=== PATIENT | female | born 1960 | race Caucasian/White ===

== ENCOUNTER 2016-05-31 05:42 | Outpatient (CLI) | payer BC ==
[~2016-05-31] VITALS: Ht 165.1 cm; Wt 85.7 kg
[~2016-05-31 05:42] MED LIST: HYDR-3812 PO
== END 2016-05-31 12:59 ==
LOC: PREOP 05:42
PROVIDERS: ATTEND Otolaryngology Otolaryngology/Facial Plastic Surgery
DX: Z01.818 Encounter for other preprocedural examination (principal); R59.0 Localized enlarged lymph nodes

== ENCOUNTER 2016-06-02 07:26 | Day surgery (SDC) | payer BC ==
[~2016-06-02] VITALS: Ht 165.1 cm; Wt 85.7 kg
[2016-06-02 07:45] VITALS: BP 123/79
[2016-06-02] MEDS: LACTATED RINGERS 1,000 ML IV PRN ×2 (07:45→10:15)
[2016-06-02] MEDS ORDERED: LIDOCAINE/EPI 1%-1:100,000 (XYLOCAINE) 20ML ONE (08:56)
[2016-06-02] MEDS ORDERED: fentaNYL INJECTION 100 MCG/2 ML AMP ONE ×2 (09:05→10:05)
[2016-06-02] MEDS ORDERED: MIDAZOLAM 2 MG/2 ML (VERSED) VIAL ONE (09:05)
[2016-06-02] MEDS ORDERED: SEVOFLURANE (ULTANE) 15 ML INHAL SOLN ONE ×4 (09:06→11:10)
[2016-06-02] MEDS ORDERED: proPOfol 200 MG/20 ML (DIPRIVAN) VIAL IV ONE ×2 (09:06→11:11)
--- NOTE | 2016-06-02 09:25 | Progress Note-Pre Operative ---
Pre-Operative Progress Note H&P Reviewed The H&P was reviewed, patient examined and no changes noted. Date H&P Reviewed: Jun 02, 2016 Time H&P Reviewed: 09:00 Pre-Operative Diagnosis: Left Anterior Neck Mass JAYESH MARQUEZ MD Jun 02, 2016 9:25 am
[2016-06-02] MEDS ORDERED: MUPIROCIN 2% OINT 22 GM (BACTROBAN) TUBE ONE (10:12)
--- NOTE | 2016-06-02 10:22 | Progress Note-Post Operative ---
Post-Operative Progess Note Surgeon (s)/Glass Ribbon Machine Operator (s) Surgeon JAYESH MARQUEZ MD Glass Ribbon Machine Operator: n/a Pre-Operative Diagnosis Left Anterior Neck Mass Post-Operative Diagnosis same-path pending Post-Op Procedure Note Date of Procedure: Jun 02, 2016 Name of Procedure Performed: Ecsional Biopsy of Left Anterior Cervical Lymph NOde Description of the Procedure: n/a Findings of the Procedure /a Anesthesia Type get Estimated blood loss (mL): minimal Packing: n/a Specimen(s) collected/removed left cervical node to path fresh to be treated as a lymphoma JAYESH MARQUEZ MD Jun 02, 2016 10:22 am
[2016-06-02] MEDS ORDERED: ACETAMINOPHEN 325 MG TABLET/CAPLET (TYLENOL) PO PRN (10:30)
[2016-06-02] MEDS ORDERED: HYDROcodone/APAP 5 MG/325 MG (LORTAB) TAB PO PRN (10:30)
[2016-06-02] MEDS ORDERED: morphine INJ 10 MG/ML 1ML (SYR OR VIAL) IVP PRN (10:45)
[2016-06-02] MEDS ORDERED: ONDANSETRON 4 MG/2 ML (SDV) Z0FRAN IVP PRN (10:45)
[2016-06-02] MEDS ORDERED: LACTATED RINGERS 1,000 ML IV ONE (11:10)
[2016-06-02] MEDS ORDERED: DEXAMETHASONE PF 10 MG/ML (DECADRON) VIAL ONE (11:10)
[2016-06-02] MEDS ORDERED: ONDANSETRON 4 MG/2 ML (SDV) Z0FRAN ONE (11:10)
[2016-06-02] MEDS ORDERED: GLYCOPYRROLATE 0.2 MG/ML (ROBINUL) 2 ML VIAL ONE (11:11)
[2016-06-02] MEDS ORDERED: NEOSTIGMINE (BLOXIVERZ ) 1 MG/1ML 10 ML VIAL ONE (11:11)
[2016-06-02 11:30] VITALS: BP 135/85
[2016-06-02] MEDS ORDERED: HYDR-3812 PO (12:06)
== END 2016-06-02 12:25 | disposition home or self-care (01) ==
LOC: SDC 07:26
PROVIDERS: ATTEND Otolaryngology Otolaryngology/Facial Plastic Surgery
DX: R59.0 Localized enlarged lymph nodes (principal)
CPT/HCPCS: 87081; 88184; 88185; 88305; 88341; 88342; 88364; 88365